=== PATIENT | female | born 1945 | race Caucasian/White ===

== ENCOUNTER 2024-09-22 14:08 | Emergency (ER) | payer BC ==
[~2024-09-22] VITALS: Ht 162.6 cm; Wt 81.6 kg
[2024-09-22] MEDS ORDERED: ACETAMINOPHEN ES 500 MG TABLET ONE (14:38)
[2024-09-22] MEDS: ACETAMINOPHEN ES 500 MG TABLET PO ONE (14:42)
[2024-09-22 15:58] VITALS: BP 142/68; TEMP 98; O2SAT 100
== END 2024-09-22 15:59 | disposition home or self-care (01) ==
LOC: ER 14:10
DX: S06.0X1A Concussion with loss of consciousness of 30 minutes or less, initial encounter (principal); S00.83XA Contusion of other part of head, initial encounter; W01.0XXA Fall on same level from slipping, tripping and stumbling without subsequent striking against object, initial encounter; Y93.01 Activity, walking, marching and hiking; Y92.481 Parking lot as the place of occurrence of the external cause; Y99.8 Other external cause status
CPT/HCPCS: 70450-TC; 70486-TC; 72125-TC